=== PATIENT | male | born 1940 ===

== ENCOUNTER 2021-10-12 11:07 | Outpatient (CLI) | payer OTHER | END 2021-10-12 11:37 | disposition home or self-care (01) | LOC: TOM 11:07 | DX: J43.9 Emphysema, unspecified (principal) ==

== ENCOUNTER 2023-01-10 11:12 | Outpatient (CLI) | payer OTHER | END 2023-01-10 11:23 | disposition home or self-care (01) | LOC: TOM 11:12 | DX: J43.9 Emphysema, unspecified (principal); E11.9 Type 2 diabetes mellitus without complications; Z87.891 Personal history of nicotine dependence ==